=== PATIENT | male | born 1995 | race Caucasian/White ===

== ENCOUNTER 2017-01-01 08:14 | Emergency (ER) | payer MEDICAID ==
[~2017-01-01] VITALS: Ht 170.2 cm; Wt 83.0 kg
[~2017-01-01 08:14] MED LIST: HYDR25SU21 RC
[2017-01-01 08:20] VITALS: BP 109/69
== END 2017-01-01 09:52 | disposition home or self-care (01) ==
LOC: ED 09:44
DX: K64.8 Other hemorrhoids (principal)
CPT/HCPCS: 99281